=== PATIENT | male | born 1975 | race Caucasian/White ===

== ENCOUNTER 2016-07-07 03:51 | Observation (INO) | payer OTHER ==
[~2016-07-07] VITALS: Ht 175.3 cm; Wt 69.1 kg
[2016-07-07 04:34] LABS: HEMATOCRIT 47.5 % (38.0-50.0); MCH 30.3 PG (29.0-34.0); MCHC 33.9 G/DL (30.0-36.0); MCV 89.5 FL (86-99); MEAN PLAT.VOLUME 9.4 uM^3 (9.0-12.4); PLATELET COUNT 333 K/uL (156-360); RBC DIS.WIDTH-CV 13.2 % (11.8-14.6); RBC DIS.WIDTH-SD 43.1 % (39-53); RED BLOOD COUNT 5.31 M/uL (4.00-5.50); WHITE BLOOD COUNT 16.3 K/uL (4.1-10.2)
[2016-07-07 04:46] LABS: CHLORIDE 102 mEq/L (99-109); POTASSIUM 4.1 mEq/L (3.7-5.4); SODIUM 139 mEq/L (136-147)
[2016-07-07 04:48] LABS: GLUCOSE 119 mg/dL (70-99)
[2016-07-07 04:49] LABS: ANION GAP 11 MEQ/L (2-14)
[2016-07-07 04:50] LABS: TOTAL BILIRUBIN 0.4 mg/dL (0.0-1.0)
[2016-07-07 04:51] LABS: ALKALINE PHOSPHATASE 66 IU/L (3-129)
[2016-07-07 04:52] LABS: GFR ESTIMATE (CALCULATED) > 59 mL/min/
[2016-07-07 04:53] LABS: UREA NITROGEN (BUN) 18 mg/dL (9-23)
[2016-07-07 04:55] LABS: LIPASE 25 U/L (1.0-51.0)
[2016-07-07 14:43] VITALS: BP 123/69
[2016-07-07 16:00] VITALS: BP 108/52
[2016-07-07 19:26] VITALS: BP 99/56
[2016-07-07 23:54] VITALS: BP 92/60
[2016-07-08 03:41] VITALS: BP 106/52
[2016-07-08 07:08] LABS: EOSINOPHIL (%) 1.5 % (0-5); EOSINOPHIL COUNT 0.2 K/uL (0-0.3); HEMATOCRIT 35.6 % (38.0-50.0); IMMATURE GRANULOCYTE (%) 0.3 % (0.0-0.7); LYMPHOCYTE COUNT 3.1 K/uL (1.0-2.8); MCH 30.6 PG (29.0-34.0); MCHC 34.3 G/DL (30.0-36.0); MCV 89.2 FL (86-99); MEAN PLAT.VOLUME 9.5 uM^3 (9.0-12.4); MONOCYTE (%) 10.9 % (3-12); MONOCYTE COUNT 1.5 K/uL (0-0.8); NEUTROPHIL (%) 64.5 % (45-76); PLATELET COUNT 239 K/uL (156-360); RBC DIS.WIDTH-CV 13.4 % (11.8-14.6); RBC DIS.WIDTH-SD 43.9 % (39-53); RED BLOOD COUNT 3.99 M/uL (4.00-5.50); WHITE BLOOD COUNT 13.9 K/uL (4.1-10.2)
[2016-07-08 07:11] LABS: ALKALINE PHOSPHATASE 41 IU/L (3-129); ANION GAP 8 MEQ/L (2-14); CHLORIDE 107 MEQ/L (99-109); GFR ESTIMATE (CALCULATED) > 59 mL/min/; GLUCOSE 94 mg/dL (70-99); MAGNESIUM 1.7 mg/dl (1.3-2.7); POTASSIUM 3.8 MEQ/L (3.7-5.4); SAMPLE HEMOLYSIS CHECK 0; SAMPLE ICTERIC CHECK 0; SAMPLE LIPEMIA CHECK 0; SODIUM 141 MEQ/L (136-147); TOTAL BILIRUBIN 0.6 MG/DL (0.0-1.0); UREA NITROGEN (BUN) 8 mg/dL (9-23)
[2016-07-08 07:57] VITALS: BP 106/62
[2016-07-08 11:46] VITALS: BP 104/54
[2016-07-08] MEDS ORDERED: OXYCONTIN10 MG PO (12:14)
[2016-07-08] MEDS ORDERED: LYRICA50 MG PO (12:15)
[2016-07-08] MEDS ORDERED: ENDOCET 5-3251 EACH PO (12:16)
== END 2016-07-08 13:54 | disposition home or self-care (01) ==
LOC: EME 03:51 → EDOF 06:56 → 2EAST 14:29
PROVIDERS: Emergency Medicine; Surgery
DX: K80.00 Calculus of gallbladder with acute cholecystitis without obstruction (principal); K66.0 Peritoneal adhesions (postprocedural) (postinfection); M54.9 Dorsalgia, unspecified; F17.210 Nicotine dependence, cigarettes, uncomplicated
CPT/HCPCS: 74177; 76705; 80053; 83605; 83690; 83735; 84100; 85025; 85027; 88304; 93005; C1769; G0378; J0290; J1170; J1335; J1885; J2270; J2405; J3010; J7030; J7050; J7120; S0028